=== PATIENT | male | born 1970 | race Caucasian/White ===

== ENCOUNTER 2019-02-13 15:09 | Inpatient (IN) | payer OTHER ==
[2019-02-13] VITALS (7 sets, daily range): BP systolic 126–171; BP diastolic 65–95
[~2019-02-13] VITALS: Ht 175.3 cm; Wt 80.3 kg
--- NOTE | ~2019-02-13 | EEG ---
[address] [address] EEG STUDY REPORT Name: JOHAN YU Room: [address] IN M.R.#: [id number] Admission: 02/13/19 Attend Phys: Rashaad Ahumada MD Discharge: Date of : 70 Report #: [id number] THIS REPORT FOR: //name// CC: Rashaad Ahumada [facility] physician/PCP DATE OF SERVICE: 02/14/2019 This patient is being evaluated for the possibility of seizure. EEG was done by placing the electrode by standard 10-20 system of electrode placement. Both referential and sequential montages were used for recording. Background activity in this patient's EEG is about 9 Hz and 30 microvolts. The patient went to sleep, that is associated with bilaterally symmetrical sleep spindle and vertex sharp waves. Throughout the record, no active epileptiform activity was noticed. IMPRESSION: This patient's electroencephalogram is unremarkable. By: [id number] 28Nathaniel Hope MD /nt
--- NOTE | ~2019-02-13 | CON ---
[address] [address] CONSULTATION Name: JOHAN YU Room: [address] IN M.R.#: [id number] Admission: 02/13/19 Attend Phys: Rashaad Ahumada MD Discharge: Date of : 70 Report #: [id number] THIS REPORT FOR: //name// CC: Rashaad Ahumada [facility] physician/PCP DATE OF SERVICE: 02/14/2019 HISTORY OF PRESENT ILLNESS: This is a 48-year-old male patient who is admitted with the poorly defined history. The patient and the mother are here. He used to drink alcohol heavily. Then, he stopped doing it. Then, he started doing it. He does not provide a straightforward history, but after talking to him for some time, it would appear that he passed out and had some shakiness. It is not clear when was his last alcoholic drink in relation to that. REVIEW OF SYSTEMS: Indicate that he had an episode of passing out about 8 years ago. He does not remember more about it. He indicates he has a history of pancreatitis that time. The history is very poor and this is the best history I can get. A 14-point review of systems was attempted, both from the patient and the mother and from the records. All of this history is poorly defined and was noncontributory. PAST MEDICAL HISTORY: Positive for similar episode 8 years ago. Further detail is not known. FAMILY HISTORY: Unremarkable. SOCIAL HISTORY: The patient drinks alcohol heavily, but he does not provide any good history after that. PHYSICAL EXAMINATION: Indicates he is alert. He is responsive. He knows what month it is. He could not tell me the exact date. He knows what hospital he is in, and who the president is. His speech looks intact. His cranial nerve examination 2-12 looks unremarkable. Neuromuscular examination as checked for strength, sensation and reflexes appear mostly unremarkable. He does have rods and screws in his legs. His pulses are palpable. He has no edema, cyanosis or jaundice. I could not look at the patient's fundus. He has no meningeal sign. He is moderately built individual who does not have any dysmorphic features of eyes, ears and face. He does not have any thyroid mass. His last blood pressure was 127/84, respiration was 17, pulse is 90. LABORATORY DATA: His white count is 3.7, but it is better today at 4.7. He still has low potassium. He did have a CT scan of the head, which was unremarkable. IMPRESSION: Possible but not definite seizures, [place] [address] CONSULTATION Name: JOHAN YU Manohar Room: [address] IN [facility].#: [id number] Admission: 02/13/19 Attend Phys: Rashaad Ahumada MD Discharge: Date of : 70 Report #: [id number] discussed the situation with the patient in detail. He has to stop drinking alcohol. He cannot drive at least for 6 months. I would like to do an MRI. He says he has a lot of metal in his leg and he does not know if it is MRI compatible or not. I will suggest doing an echocardiogram to make sure he does not have any alcoholic cardiomyopathy. His B12 is little bit low and he should take some supplemental vitamin B12. Otherwise, the main thing is going to be stopped drinking alcohol and if he can find about the metal in his legs and if he wants to proceed with it, we can do an MRI of the brain. I will check an EEG in this patient to make sure there is no seizure activity going on this patient. By: 1019 1209Nathaniel Hope MD /nt
[2019-02-13 15:47] LABS: ABSOLUTE EOSINOPHILS 0.1 thou/uL (0.0-0.7); ABSOLUTE LYMPHOCYTES 0.6 thou/uL (0.8-5.3); ABSOLUTE MONOCYTES 0.2 thou/uL (0.0-1.2); ABSOLUTE NEUTROPHILS 2.8 thou/uL (1.6-8.1); EOSINOPHILS 1.4 %; HEMATOCRIT 34.6 % (42.0-52.0); HEMOGLOBIN 12.2 gm/dL (14.0-18.0); LYMPHOCYTES 16.3 %; MCH 35.2 pg (26.0-34.0); MCHC 35.1 g/dL (28.0-37.0); MONOCYTES 5.3 %; MPV 6.6 fl. (7.2-11.1); NUCLEATED RBCS 0 /100WBC; PLATELET COUNT* 128 thou/uL (150-400); RBC 3.46 mil/uL (4.50-6.00); RDW-CV 17.1 % (10.5-14.5); WBC 3.7 thou/uL (4.0-11.0)
[2019-02-13 15:57] LABS: APTT 22.4 Seconds (25.0-31.3); CALCIUM 8.5 mg/dL (8.5-10.1); INR 1.2; POTASSIUM 3.1 mmol/L (3.5-5.1)
[2019-02-13 16:02] LABS: ACETAMINOPHEN < 2 ug/mL (10-30); ALBUMIN 3.5 g/dL (3.4-5.0); ALCOHOL 26 mg/dL (<10); SALICYLATE 3.1 mg/dL (2.8-20.0); TOTAL BILIRUBIN 0.4 mg/dL (<0.1-1.0); TOTAL PROTEIN 6.1 g/dL (6.4-8.2)
[2019-02-13 16:12] LABS: CK-MB MASS 1.3 ng/mL (<0.5-3.6); TROPONIN-I LEVEL <0.06 ng/mL (<0.06)
[2019-02-13 16:14] LABS: URINE BILIRUBIN NEGATIVE (Negative); URINE BLOOD NEGATIVE (Negative); URINE CLARITY CLEAR; URINE COLOR YELLOW; URINE GLUCOSE-RANDOM NEGATIVE (Negative); URINE KETONES NEGATIVE (Negative); URINE LEUKOCYTES-REFLEX NEGATIVE (Negative); URINE NITRITE-REFLEX NEGATIVE (Negative); URINE PROTEIN NEGATIVE (Negative); URINE UROBILINOGEN 0.2 E.U./dl (0.2-1.0)
[2019-02-13 16:21] LABS: AMP/METHAMP Negative (Negative); BARBITURATES Negative (Negative); BENZODIAZEPINES Negative (Negative); COCAINE Negative (Negative); METHADONE Negative (Negative); OPIATES Negative (Negative); PCP Negative (Negative); THC Negative (Negative)
[2019-02-14] VITALS (22 sets, daily range): BP systolic 89–143; BP diastolic 50–94
[2019-02-14 05:24] LABS: ABSOLUTE EOSINOPHILS 0.1 thou/uL (0.0-0.7); ABSOLUTE MONOCYTES 0.2 thou/uL (0.0-1.2); ABSOLUTE NEUTROPHILS 3.3 thou/uL (1.6-8.1); BASOPHILS 0.7 %; EOSINOPHILS 2.1 %; LYMPHOCYTES 21.2 %; MCH 35.6 pg (26.0-34.0); MCHC 35.6 g/dL (28.0-37.0); MCV 99.9 fL (80.0-100.0); MONOCYTES 4.7 %; MPV 6.9 fl. (7.2-11.1); NUCLEATED RBCS 0 /100WBC; PLATELET COUNT* 105 thou/uL (150-400); POLYS 71.3 %; RDW-CV 16.8 % (10.5-14.5); WBC 4.7 thou/uL (4.0-11.0)
[2019-02-14 05:41] LABS: CALCIUM 8.4 mg/dL (8.5-10.1); CREATININE 1.1 mg/dL (0.6-1.3)
--- NOTE | 2019-02-14 10:20 | EKG ---
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1970 Requested By: Rodney Garcia Order Number: [id number] MD: Piero Siddiqi Measurements Intervals [place] Rate: 100 P: 68 [place]: 132 QRS: 45 QRSD: 91 T: -44 QT: 454 QTc: 586 Interpretive Statements Sinus tachycardia Borderline low voltage, extremity leads Nonspecific T abnormalities, lateral leads Prolonged QT interval artifact noted Baseline wander in lead(s) I,II,aVR,aVL,V2,V3 No previous ECG available for comparison Electronically Signed On 02-14-2019 10:20:45 CDT by Piero Siddiqi [email or web address] <ELECTRONICALLY SIGNED> By: Piero Siddiqi MD, [facility] 02/14/19 1020 1514 1514 Piero Siddiqi MD, [facility] /EPI
--- NOTE | 2019-02-14 12:31 | 2DMMODE ---
[place] [address] 2 D/M-MODE ECHOCARDIOGRAM Name: YUJOHAN Room: [address] IN [facility]#: [id number] Admission: 02/13/19 Attend Phys: Rashaad Ahumada, Discharge: Date of : 70 Date of Service: 02/14/19 1230 Report #: [id number] THIS REPORT FOR: //name// APPROVED REPORT Study performed: 02/14/2019 10:38:19 EXAM: Comprehensive 2D, Doppler, and color-flow Echocardiogram Patient Location: In-Patient Room #: [facility] BSA: 1.96 HR: 85 bpm BP: 127/84 mmHg Other Information Study Quality: Excellent Indications Syncope 2D Dimensions IVSd: 10.30 (7-11mm) LVOT Diam: 20.68 (18-24mm) LVDd: 46.66 mm PWd: 10.65 (7-11mm) Ascending Ao: 31.06 (22-36mm) LVDs: 28.86 (25-40mm) Aortic Root: 30.83 mm Volumes Left Atrial Volume (Systole) LA ESV Index: 18.40 mL/m2 Aortic Valve AoV Peak Carlito.: 1.42 m/s AO Peak Gr.: 8.11 mmHg LVOT Max P.03 mmHg AO Mean Gr.: 3.85 mmHg LVOT Mean P.43 mmHg LVOT Max V: 1.23 m/s AO V2 VTI: 23.23 cm LVOT Mean V: 0.69 m/s JACQUELYN (VTI): 3.22 cm2 LVOT V1 VTI: 22.30 cm Mitral Valve E/A Ratio: 0.88 MV Decel. Time: 163.68 ms MV E Max Carlito.: 0.69 m/s MV PHT: 47.47 [place] [address] 2 D/M-MODE ECHOCARDIOGRAM Name: JOHAN YU Room: [address] IN [facility]#: [id number] Admission: 02/13/19 Attend Phys: Rashaad Ahumada, Discharge: Date of : 70 Date of Service: 02/14/19 1230 Report #: [id number] MVA (PHT): 4.63 cm2 TDI E/Lateral E': 5.75 E/Medial E': 6.27 Medial E' Carlito.: 0.11 m/s Lateral E' Carlito.: 0.12 m/s Pulmonary Valve PV Peak Carlito.: 1.10 m/s PV Peak Gr.: 4.81 mmHg Left Ventricle The left ventricle is normal size. There is normal LV segmental wall motion. There is normal left ventricular wall thickness. Left ventricular systolic function is normal. The left ventricular ejection fraction is within the normal range. LVEF is 55-60%. Grade I - abnormal relaxation pattern. Right Ventricle The right ventricle is normal size. The right ventricular systolic function is normal. Atria The left atrium size is normal. The right atrium size is normal. Aortic Valve The aortic valve is normal in structure. No aortic regurgitation is present. There is no aortic valvular stenosis. Mitral Valve The mitral valve is normal in structure. There is no mitral valve regurgitation noted. No evidence of mitral valve stenosis. Tricuspid Valve The tricuspid valve is normal in structure. There is no tricuspid valve regurgitation noted. Pulmonic Valve The pulmonary valve is normal in structure. There is no pulmonic valvular regurgitation. Great Vessels The aortic root is normal in size. IVC is normal in size and collapses >50% with [place] [address] 2 D/M-MODE ECHOCARDIOGRAM Name: JOHAN YU Room: [address]#: [id number] Admission: 02/13/19 Attend Phys: Rashaad Ahumada, Discharge: Date of : 70 Date of Service: 02/14/19 1230 Report #: [id number] There is no pericardial effusion. <Conclusion> Left ventricular systolic function is normal. The left ventricular ejection fraction is within the normal range. <ELECTRONICALLY SIGNED> By: Piero Siddiqi MD, [facility] 02/14/19 1230 1230 1230 Piero Siddiqi MD, [facility] /INF
[2019-02-15] VITALS (9 sets, daily range): BP systolic 108–142; BP diastolic 84–92
[2019-02-15 05:07] LABS: ABSOLUTE EOSINOPHILS 0.1 thou/uL (0.0-0.7); ABSOLUTE LYMPHOCYTES 0.9 thou/uL (0.8-5.3); ABSOLUTE MONOCYTES 0.2 thou/uL (0.0-1.2); ABSOLUTE NEUTROPHILS 2.9 thou/uL (1.6-8.1); BASOPHILS 0.6 %; EOSINOPHILS 2.9 %; HEMATOCRIT 29.4 % (42.0-52.0); HEMOGLOBIN 10.1 gm/dL (14.0-18.0); LYMPHOCYTES 21.5 %; MCHC 34.4 g/dL (28.0-37.0); MCV 101.8 fL (80.0-100.0); MONOCYTES 5.1 %; NUCLEATED RBCS 0 /100WBC; PLATELET COUNT* 88 thou/uL (150-400); POLYS 69.9 %; RBC 2.88 mil/uL (4.50-6.00); RDW-CV 16.5 % (10.5-14.5); WBC 4.2 thou/uL (4.0-11.0)
[2019-02-15 05:54] LABS: ALBUMIN 3.1 g/dL (3.4-5.0); CALCIUM 8.3 mg/dL (8.5-10.1); MAGNESIUM 2.3 mg/dL (1.8-2.4); PHOSPHORUS* 3.4 mg/dL (2.5-4.9); POTASSIUM 3.3 mmol/L (3.5-5.1); TOTAL BILIRUBIN 0.4 mg/dL (<0.1-1.0); TOTAL PROTEIN 5.6 g/dL (6.4-8.2)
[2019-02-15] MEDS ORDERED: PROTONIX40 M1 PO (08:08)
[2019-02-15] MEDS ORDERED: VITAMIN B-1100 M1 PO (08:09)
[2019-02-15] MEDS ORDERED: B12INJ IM (08:09)
[2019-02-15] MEDS ORDERED: FOLIC ACID1 MG PO (08:09)
[2019-02-15] MEDS ORDERED: PRENATABS FA T1 EACH PO (08:12)
== END 2019-02-15 09:50 | disposition home or self-care (01) | DRG 72 ==
LOC: M.ERS 15:09 → M.TBA-ER 16:47 → M.ICU 16:47
PROVIDERS: Emergency Medicine; ADMIT Internal Medicine
DX: G93.40 Encephalopathy, unspecified (principal); E87.6 Hypokalemia; D69.6 Thrombocytopenia, unspecified; F10.20 Alcohol dependence, uncomplicated; Z71.6 Tobacco abuse counseling; Z88.0 Allergy status to penicillin